=== PATIENT | female | born 1945 | race Caucasian/White ===

== ENCOUNTER → 2016-08-02 | Outpatient (CLI) | payer MEDICARE | END | disposition home or self-care (01) | LOC: PCVCCLINIC 14:37 | PROVIDERS: ATTEND Internal Medicine Cardiovascular Disease | DX: I25.10 Atherosclerotic heart disease of native coronary artery without angina pectoris (principal); I10 Essential (primary) hypertension; I65.23 Occlusion and stenosis of bilateral carotid arteries; E11.9 Type 2 diabetes mellitus without complications; I73.9 Peripheral vascular disease, unspecified; E78.00 Pure hypercholesterolemia, unspecified; Z86.79 Personal history of other diseases of the circulatory system; Z98.890 Other specified postprocedural states; Z95.820 Peripheral vascular angioplasty status with implants and grafts; Z79.84 Long term (current) use of oral hypoglycemic drugs; Z79.899 Other long term (current) drug therapy; Z88.1 Allergy status to other antibiotic agents | CPT/HCPCS: 80061; 93005; G0463 ==

== ENCOUNTER → 2016-08-03 | Outpatient (CLI) | payer MEDICARE ==
--- NOTE | 2016-08-03 15:54 | PCVCIMAG ---
EXAM: BILATERAL CAROTID DUPLEX INDICATION: Carotid Occlusive Disease. FINDINGS: Doppler Measurements (centimeters per second): RIGHT: Peak CCA-68, Peak ECA-76, Diastolic ICA-23, Peak ICA-97, ICA/CCA Ratio-1.4. LEFT: Peak CCA-74, Peak ECA-100, Diastolic ICA-27, Peak ICA-194, ICA/CCA Ratio-2.6. RIGHT CAROTID: The carotid bulb has minimal plaque. The proximal internal carotid artery shows no significant stenosis. The common carotid artery shows no significant stenosis. The external carotid artery shows no significant stenosis. LEFT CAROTID: The carotid bulb has moderate severe plaque. The proximal internal carotid artery shows 60-70% stenosis. The common carotid artery shows no significant stenosis. The external carotid artery shows no significant stenosis. Antegrade flow in both vertebral arteries. IMPRESSION: No significant stenosis of the right internal carotid artery with minimal plaque. 60-70% stenosis of the left internal carotid artery with moderately severe plaque. LOC:[place] [id number]
== END | disposition home or self-care (01) ==
LOC: PCVCIMAG 11:19
PROVIDERS: ATTEND Internal Medicine Cardiovascular Disease
DX: I65.23 Occlusion and stenosis of bilateral carotid arteries (principal); I10 Essential (primary) hypertension; E11.9 Type 2 diabetes mellitus without complications; E78.5 Hyperlipidemia, unspecified
CPT/HCPCS: 93880

== ENCOUNTER → 2017-05-03 | Outpatient (CLI) | payer MEDICARE | END | disposition home or self-care (01) | LOC: PCVCCLINIC 13:15 | DX: I25.10 Atherosclerotic heart disease of native coronary artery without angina pectoris (principal); I10 Essential (primary) hypertension; I77.9 Disorder of arteries and arterioles, unspecified; I73.9 Peripheral vascular disease, unspecified; E78.00 Pure hypercholesterolemia, unspecified; E11.9 Type 2 diabetes mellitus without complications; I67.1 Cerebral aneurysm, nonruptured; Z98.890 Other specified postprocedural states; Z86.79 Personal history of other diseases of the circulatory system; Z87.891 Personal history of nicotine dependence; Z79.899 Other long term (current) drug therapy | CPT/HCPCS: 93005; G0463 ==

== ENCOUNTER → 2017-12-24 | Outpatient (CLI) | payer MEDICARE ==
--- NOTE | 2017-12-24 12:33 | PCVCIMAG ---
APPROVED REPORT Indications Stenosis Doppler Spectral Velocity Analysis PSV / EDVPSV / EDV ECA (R) 218 / 31 cm/sECA (L) 192 / 14 cm/s dICA (R) 55 / 16 cm/sdICA (L) 75 / 22 cm/s Rosie (R) 71 / 18 cm/smICA (L) 135 / 42 cm/s pICA (R) 80 / 18 cm/spICA (L) 172 / 44 cm/s Bulb (R) 85 / 22 cm/sBulb (L) 129 / 27 cm/s dCCA (R) 79 / 29 cm/sdCCA (L) 76 / 24 cm/s mCCA (R) 63 / 16 cm/smCCA (L) 51 / 15 cm/s Vert (R) 48 / 12 cm/sVert (L) 50 / 16 cm/s ICA/CCA 1.01 ICA/CCA 2.26 Findings The right carotid bulb has mild plaque. The right proximal internal carotid artery shows no significant stenosis, changes of endarterectomy The right common carotid artery shows no significant stenosis. The right external carotid artery shows >50% significant stenosis. The left carotid bulb has moderately severe calcified plaque. The left proximal internal carotid artery shows 60-70% stenosis. The left common carotid artery shows no significant stenosis. The left external carotid artery shows >50% stenosis. Conclusion 1. Right proximal internal carotid artery no significant stenosis, changes of endarterectomy 2. Left internal carotid artery stenosis (60-70%) 3. Antegrade vertebral flow
--- NOTE | 2017-12-24 14:44 | PCVCIMAG ---
EXAM: AORTOILIAC DUPLEX INDICATION: Peripheral arterial disease FINDINGS: AORTA: Suprarenal aorta measures maximum diameter of 2.5 cm. There is not a fusiform infrarenal aortic aneurysm. The infrarenal aorta measures maximum diameter of 2.8 cm. No aortic stenosis. RIGHT COMMON ILIAC ARTERY: Maximum diameter is 1.2 cm. No significant stenosis. RIGHT EXTERNAL ILIAC ARTERY: No significant stenosis. LEFT COMMON ILIAC ARTERY: Maximum diameter is 1.0 cm. No significant stenosis. LEFT EXTERNAL ILIAC ARTERY: No significant stenosis. IMPRESSION: Ectasia of the infrarenal abdominal aorta measuring up to 2.8 cm in greatest dimension. No aortoiliac stenosis. LOC:[id number]
== END | disposition home or self-care (01) ==
LOC: PCVCIMAG 09:57
PROVIDERS: ATTEND Internal Medicine Cardiovascular Disease
DX: I25.10 Atherosclerotic heart disease of native coronary artery without angina pectoris (principal); E11.51 Type 2 diabetes mellitus with diabetic peripheral angiopathy without gangrene; I10 Essential (primary) hypertension; E78.00 Pure hypercholesterolemia, unspecified; I65.22 Occlusion and stenosis of left carotid artery; I71.4 Abdominal aortic aneurysm, without rupture; Z98.890 Other specified postprocedural states; Z86.79 Personal history of other diseases of the circulatory system; Z79.84 Long term (current) use of oral hypoglycemic drugs; Z87.891 Personal history of nicotine dependence
CPT/HCPCS: 80061; 93005; 93880; 93978; G0463

== ENCOUNTER → 2018-09-02 | Outpatient (CLI) | payer MEDICARE ==
--- NOTE | 2018-09-02 17:06 | PCVCIMAG ---
APPROVED REPORT Study performed: 09/02/2018 10:20:57 EXAM: Comprehensive 2D, Doppler, and color-flow Echocardiogram [facility]: 1.78 HR: 75 bpmBP: 126/72 mmHg Rhythm: NSR Other Information Study Quality: Good Risk Factors: Cardiac Risk Factors: HTN, Hyperlipidemia, DM Indications CAD 2D Dimensions IVSd: 9.15 (7-11mm)LVOT Diam: 19.69 (18-24mm) LVDd: 43.04 mm PWd: 6.99 (7-11mm)Ascending Ao: 29.81 (22-36mm) LVDs: 26.44 (25-40mm) Left Atrium: 29.16 (27-40mm) Aortic Root: 25.68 mm LV Single Plane 4CH: 61.76 % LV Single Plane 2CH: 56.32 % Biplane EF: 58.7 % Volumes Left Atrial Volume (Systole) Single Plane 4CH: 36.01 mLSingle Plane 2CH: 44.52 mL Biplane LA Volume: 41.00 mLLA ESV Index: 23.00 mL/m2 Aortic Valve AoV Peak Hua.: 1.66 m/s AO Peak Gr.: 10.96 mmHgLVOT Max P.03 mmHg LVOT Max V: 0.84 m/s FAM Vmax: 1.54 cm2 Mitral Valve E/A Ratio: 0.6 MV Decel. Time: 203.14 ms MV E Max Hua.: 0.75 m/s MV A Hua.: 1.27 m/s IVRT: 103.81 ms TDI E/Lateral E': 12.50E/Medial E': 18.75 Medial E' Hua.: 0.04 m/s Lateral E' Hua.: 0.06 m/s Pulmonary Valve PV Peak Hua.: 0.82 m/sPV Peak Gr.: 2.70 mmHg Pulmonary Vein P Vein S: 0.54 m/sP Vein A: 0.35 m/s P Vein D: 0.27 m/sP Vein A Dur.: 103.8 msec P Vein S/D Ratio: 2.00 Tricuspid Valve TV Vmax: 0.52 m/s Left Ventricle The left ventricle is normal size. There is normal LV segmental wall motion. There is normal left ventricular wall thickness. Left ventricular systolic function is normal. The left ventricular ejection fraction is within the normal range. LVEF is 55-60%. Grade I - abnormal relaxation pattern. Findings suggest the left atrial pressure is elevated. Right Ventricle The right ventricle is normal size. The right ventricular systolic function is normal. Atria The left atrium size is normal. The right atrium size is normal. Aortic Valve Aortic valve is trileaflet. Aortic valve leaflets are mildly sclerotic. No aortic regurgitation is present. There is no aortic valvular stenosis. Mitral Valve Mitral valve leaflets are mildly sclerotic. There is no mitral valve regurgitation noted. No evidence of mitral valve stenosis. Tricuspid Valve The tricuspid valve is normal in structure. There is no tricuspid valve regurgitation noted. Pulmonic Valve The pulmonary valve is normal in structure. There is no pulmonic valvular regurgitation. Great Vessels The aortic root is normal in size. The ascending aorta is normal in size. Aortic arch is normal in caliber. Atherosclerotic plaque is present in the proximal left commom carotid. IVC is normal in size and collapses >50% with inspiration. Pericardium There is no pericardial effusion. There is no pleural effusion. <Conclusion> The left ventricle is normal size. LVEF is 55-60%. Grade I - abnormal relaxation pattern. Findings suggest the left atrial pressure is elevated. The left atrium size is normal. Aortic valve is trileaflet. Aortic valve leaflets are mildly sclerotic. Mitral valve leaflets are mildly sclerotic. There is no tricuspid valve regurgitation noted. The aortic root is normal in size. There is no pericardial effusion. The ascending aorta is normal in size. Aortic arch is normal in caliber. Atherosclerotic plaque is present in the proximal left commom carotid.
== END | disposition home or self-care (01) ==
LOC: PCVCIMAG 10:10
PROVIDERS: ATTEND Internal Medicine Cardiovascular Disease
DX: I08.0 Rheumatic disorders of both mitral and aortic valves (principal); R09.89 Other specified symptoms and signs involving the circulatory and respiratory systems; E78.00 Pure hypercholesterolemia, unspecified; E11.9 Type 2 diabetes mellitus without complications; E78.5 Hyperlipidemia, unspecified; Z98.890 Other specified postprocedural states; Z86.79 Personal history of other diseases of the circulatory system; Z88.2 Allergy status to sulfonamides; Z87.891 Personal history of nicotine dependence; Z79.899 Other long term (current) drug therapy
CPT/HCPCS: 36415; 80061; 93005; 93306; G0463